=== PATIENT | male | born 1955 | race Caucasian/White ===

== ENCOUNTER 2020-05-18 10:06 | Outpatient (REF) | payer OTHER, SELFPAY | END 2020-05-18 10:07 | disposition home or self-care (01) | LOC: HO.WFDLDS 10:06 | PROVIDERS: PCP Internal Medicine; Visit Provider Internal Medicine | DX: Z20.822 Contact with and (suspected) exposure to COVID-19 (principal) | CPT/HCPCS: 36415; C9803; U0003; U0005 ==

== ENCOUNTER 2023-12-30 09:31 | Outpatient (AMB) | payer MEDICARE, SELFPAY ==
--- NOTE | 2023-12-30 10:06 | MHC.PC.OV ---
Vital Signs 12/30/23 10:17 12/30/23 10:22 Height 5 ft 5.75 in Weight 189 lb 8 oz BMI 30.8 BP 144/76 H 138/78 Blood Pressure Location Rt brachial Rt brachial Position Sitting Sitting Pulse 76 Pulse Source Pulse Oximeter Temp 98.1 F Temp Source Oral Pulse Oximetry (%) 96 Oxygen Delivery Method Room Air Intake Visit Reasons: [employer]IL[employer]-Establish Care Allergies No Known Allergies Allergy (Verified 12/30/23 10:13) Tobacco use date assessed: 12/30/23 Fall risk assessment: No Falls in past year Last assessed Fall Risk: 12/30/23 Dental Screening Dental Screen Date: 12/30/23 Did you have a dental visit in the last 12 months?: Yes Did you have a dental problem in the last 6 months where you did not have access to dental care?: No Was dental information given to patient?: Patient has dentist HPI HPI Comments History of Present Illness Details 68 year old male with past medical history of hypertension, hyperlipidemia, insomnia presenting for follow up. Transfer from [facility] CV: On simvastatin 40mg daily, ASA 81mg. Insomnia: Tried all classical medications. Continues on depakote, the only medication that works for sleep. This was originally prescribed by neurology TAL: Follows with sleep medicine at [facility] MSK: Status post right total shoulder [facility], Dr. Haas. We will have upcoming left total shoulder. Chronic low back, buttock, bilateral feet pain. Had an extensive workup for the bilateral foot pain in the past. Insert rather acutely after playing [employer] tennis his few years ago and persisted. X-rays showed arthritis. EMG was performed, Podiatry, neurosurgical and vascular consultation without diagnosis or improvement. Did receive a L5-S1 interlaminar epidural injection which provided some relief to the foot pain given a spondylosis (no significant spinal stenosis). He was having some issues with TMJ. Did well on Elavil but only needed te short term. Colonoscopy -[facility] 2020 ROS CONSTITUTIONAL: Denies weight loss, fever and chills. HEENT: Denies changes in vision and hearing. RESPIRATORY: Denies SOB and cough. CV: Denies palpitations and CP GI: Denies abdominal pain, nausea, vomiting and diarrhea. : Denies dysuria and urinary frequency. MSK: Denies new myalgia and joint pain. SKIN: Denies rash and pruritus. NEUROLOGICAL: Denies headache PSYCHIATRIC: Denies recent changes in mood. PHYSICAL EXAM: GENERAL: Alert and oriented x 3. NAD EYES: EOMI. Anicteric. HENT: Moist mucous membranes. No scleral icterus. No cervical lymphadenopathy. LUNGS: Clear to auscultation bilaterally. CARDIOVASCULAR: Regular rate and rhythm. No murmur. No JVD. ABDOMEN: Soft, non-tender +bs EXTREMITIES: No edema. Non-tender. SKIN: No rashes or lesions. Warm. NEUROLOGIC: No focal neurological deficits. CN II-XII grossly intact PSYCHIATRIC: Cooperative. Appropriate mood and affect [facility] Surgical History (Updated 12/30/23 @ 10:22 by Kaylie Bee CMA) History of total right knee replacement Hx of colonoscopy Social History (Updated 12/30/23 @ 10:16 by Kaylie Bee CMA) Housing: House Alcohol intake: current Patient Tobacco Use Status: Never used Tobacco e-Cigarette/Vaping Use: Never Used Second Hand Smoke Exposure: No service: No Current occupational status: retired Cognitive needs: No Hearing needs: No Vision needs: Yes (glasses) Questionnaire PHQ-9 Over the last 2 weeks, how often have you been bothered by any of the following problems? 1. Little interest or pleasure in doing things: not at all 2. Feeling down, depressed, or hopeless: not at all 3. Trouble falling or staying asleep, or sleeping too much: several days 4. Feeling tired or having little energy: not at all 5. Poor appetite or overeating: not at all 6. Feeling bad about yourself - or that you are a failure or have let yourself or your family down: not at all 7. Trouble concentrating on things, such as reading the newspaper or watching television: not at all 8. Moving or speaking so slowly that other people could have noticed. Or the opposite - being so fidgety or restless that you have been moving around a lot more than usual: not at all 9. Thoughts that you would be better off or of hurting yourself in some way: not at all Total score: 1 Depression Screening Interpretation: Negative Depression Screening Done: Yes 19657 - PHQ-9 Billing: Yes Source: Developed by Drs. Anoop Matt, Lizz Alcaraz, Rico Beach and colleagues, with an educational rudi from [employer]. Thrive Questionnaire Date Thrive assessed: 12/27/23 I am a: Patient What is your living situation today?: I have a steady place to live Within the past 12 months, did the food you bought not last and you didn't have the money to get more?: Never true Within the past 12 months, did you worry whether your food would run out before you got money to buy more?: Never true Do you have trouble paying for medicines?: No Do you have trouble getting transportation to medical appointments?: No Do you have trouble paying your heating and electricity bill?: No Do you have trouble taking care of your child, family member or friend?: No Do you have trouble with day-to-day activities such as bathing, preparing meals, shopping, managing finances, etc.?: No Are you currently unemployed and looking for a job?: No Are you interested in more education?: No Please select the resources that you would like help with: None Currently or been in a relationship where the following occur: No concerns reported THRIVE Score: 0 AUDIT C Alcohol Use Questionnaire (AUDIT-C) 1. How often do you have a drink containing alcohol?: 2-4 times a month 2. How many drinks containing alcohol do you have on a typical day when you are drinking?: 1 or 2 3. How often do you have six or more drinks on one occasion?: Never Total Score: 2 AKSHAT-7 AMB Questionnaire AKSHAT-7 Date AKSHAT - 7 assessed: 12/30/23 Feeling nervous, anxious, or on edge: 0 = Not at all Not being able to stop or control worryin = Not at all Worrying too much about different things: 0 = Not at all Trouble relaxin = Not at all Being so restless that it is hard to sit still: 0 = Not at all Becoming easily annoyed or irritable: 0 = Not at all Feeling afraid as if something awful might happen: 0 = Not at all Total AKSHAT-7 score (0-4 normal; 5-9 mild; 10-14 moderate; 15-21 severe): 0 Source: Developed by Drs. Anoop Matt, Lizz Alcaraz, Rico Beach and colleagues, with an educational rudi from [employer]. AKSHAT-7 Assessment Billing AKSHAT-7 Assessment Tool: AKSHAT-7 Assessment 42523 Physical exam (Primary Care) Vital Signs: Last Vital Signs Temp 98.1 F 12/30/23 10:17 Pulse 76 12/30/23 10:17 BP 138/78 12/30/23 10:22 Pulse Ox 96 12/30/23 10:17 Oxygen Delivery Method Room Air 12/30/23 10:17 BMI result Body Mass Index 30.8 PHQ-9: PHQ-9 Score PHQ-9: Total score 1 12/30/23 10:07 Depression Screening Interpretation: Negative Thrive Assessment: Date of Thrive Assessment Date Thrive assessed 12/27/23 12/30/23 10:07 Currently or been in a relationship where the following occur: No concerns reported Coding Level of Care Code Est Pt Level 4 (41779) Complex EM visit Add On G2211 Diagnoses Mixed hyperlipidemia E78.2 Hyperlipidemia type: mixed hyperlipidemia TAL (obstructive sleep apnea) G47.33 Primary insomnia F51.01 Insomnia type: primary Additional Codes AKSHAT-7 Assessment Billing - AKSHAT-7 Assessment Tool: AKSHAT-7 Assessment 49833 ([id number]) Assessment & Plan Assessment & Plan (1) Hyperlipidemia: Code(s): E78.5 - Hyperlipidemia, unspecified Category: Medical Qualifiers: Hyperlipidemia type: mixed hyperlipidemia Qualified Code(s): E78.2 - Mixed hyperlipidemia Plan: continue statin therapy LDL has been at goal (2) TAL (obstructive sleep apnea): Code(s): G47.33 - Obstructive sleep apnea (adult) (pediatric) Category: Medical Plan: stable on cpap therapy (3) Insomnia: Code(s): G47.00 - Insomnia, unspecified Category: Medical Qualifiers: Insomnia type: primary Qualified Code(s): F51.01 - Primary insomnia Plan: stable on depakote. monitor levels Orders: Orders Complete Blood Count Auto Diff Today E78.5 - Hyperlipidemia, unspecified, G47.00 - Insomnia, unspecified, G47.33 - Obstructive sleep apnea (adult) (pediatric), M54.50 - Low back pain, unspecified Comprehensive Met. Panel Today E78.5 - Hyperlipidemia, unspecified, G47.00 - Insomnia, unspecified, G47.33 - Obstructive sleep apnea (adult) (pediatric), M54.50 - Low back pain, unspecified Other Ref Test - Misc Today Z51.81 - Encounter for therapeutic drug level monitoring Lipid Panel Today E78.5 - Hyperlipidemia, unspecified, G47.00 - Insomnia, unspecified, G47.33 - Obstructive sleep apnea (adult) (pediatric), M54.50 - Low back pain, unspecified Prostate Specific Antigen Today E78.5 - Hyperlipidemia, unspecified, G47.00 - Insomnia, unspecified, G47.33 - Obstructive sleep apnea (adult) (pediatric), M54.50 - Low back pain, unspecified TSH reflex Free T4 Today E78.5 - Hyperlipidemia, unspecified, G47.00 - Insomnia, unspecified, G47.33 - Obstructive sleep apnea (adult) (pediatric), M54.50 - Low back pain, unspecified Hemoglobin A1c Today E78.5 - Hyperlipidemia, unspecified, G47.00 - Insomnia, unspecified, G47.33 - Obstructive sleep apnea (adult) (pediatric), M54.50 - Low back pain, unspecified
[2023-12-30 10:17] VITALS: BP 144/76; PULSE 76; TEMP 36.7; O2SAT 96; BMI 30.8
[2023-12-30 10:22] VITALS: BP 138/78
== END 2023-12-30 10:50 | disposition home or self-care (01) ==
LOC: HO.HMCFM 09:32
PROVIDERS: PCP Internal Medicine; Visit Provider Internal Medicine
DX: E78.2 Mixed hyperlipidemia (principal); G47.33 Obstructive sleep apnea (adult) (pediatric); F51.01 Primary insomnia

== ENCOUNTER 2023-12-30 11:06 | Outpatient (REF) | payer MEDICARE, OTHER, SELFPAY ==
[2023-12-30 14:40] LABS: MANUAL DIFF FLAG NO
[2023-12-30 14:50] LABS: Basophils Percent Auto 0.6 % (0-2); Eosinophils Absolute Auto 0.2 X10*3/uL (0.0-0.4); Eosinophils Percent Auto 3.4 % (0-4); Hematocrit 47.3 % (42.0-52.0); Hemoglobin 16.3 g/dl (14.0-18.0); Imm Gran Abs Auto 0.01 X10*3/uL (0.00-0.03); Imm Gran Pct Auto 0.2 % (0.0-0.4); Lymphocytes Absolute Auto 1.3 X10*3/uL (1.2-4.9); Mean Corpuscular HGB Conc 34.5 g/dl (31.0-36.0); Mean Corpuscular Volume 90.1 fL (80.0-98.0); Mean Platelet Volume 10.7 fL (9.4-12.4); Monocytes Absolute Auto 0.5 X10*3/uL (0.1-1.2); Monocytes Percent Auto 10.5 % (2-11); Neutrophils Absolute Auto 2.9 x10*3/uL (2.0-8.3); Neutrophils Percent Auto 58.3 % (45-73); Platelet Count 186 X10*3/uL (160-400); Red Blood Count 5.25 X10*6/uL (4.60-5.80); Red Cell Distribution Width 12.7 % (11.0-16.0); White Blood Count 4.9 X10*3/uL (4.8-10.8)
[2023-12-30 15:04] LABS: Estimated Average Glucose 117 mg/dL; Hemoglobin A1C 171.7977 umol/L; Hemoglobin A1c % 5.7 % (<6.0); Total Hemoglobin (HGBA1C) 4368.0607 umol/L
[2023-12-30 16:12] LABS: Alanine Aminotransferase 82 U/L (0-40); Albumin Level 4.1 g/dL (3.5-5.0); Alkaline Phosphatase 71 U/L (39-117); Anion Gap 14 (12-20); Aspartate Amino Transferase 76 U/L (5-37); Bilirubin Total 0.3 mg/dL (0.0-1.0); Blood Urea Nitrogen 12 mg/dL (9-16); Calcium 9.8 mg/dL (8.4-10.2); Carbon Dioxide 25 mmol/L (22-29); Chloride 103 mmol/L (96-108); Cholesterol 189 mg/dL (<200); Estimated Glomerular Filt Rate > 60; Glucose Random 109 mg/dL (60-115); HDL Cholesterol 45 mg/dL (>40); LDL Cholesterol Calculated 69 mg/dL (<100); Potassium 4.4 mmol/L (3.3-5.1); Sodium 138 mmol/L (135-145); Total Protein 7.4 g/dL (6.5-8.0); Triglycerides 376 mg/dL (<150)
[2023-12-30 16:32] LABS: TSH reflex Free T4 2.04 uIU/mL (0.32-4.0)
[2023-12-30 16:49] LABS: Valproate 25.9 mcg/mL (50.0-100.0)
== END 2023-12-30 11:07 | disposition home or self-care (01) ==
LOC: HO.WFDLDS 11:06
PROVIDERS: Visit Provider Internal Medicine
DX: Z51.81 Encounter for therapeutic drug level monitoring (principal); E78.5 Hyperlipidemia, unspecified; G47.00 Insomnia, unspecified; G47.33 Obstructive sleep apnea (adult) (pediatric); M54.50 Low back pain, unspecified; E78.2 Mixed hyperlipidemia; F51.01 Primary insomnia; Z12.5 Encounter for screening for malignant neoplasm of prostate; Z13.1 Encounter for screening for diabetes mellitus
CPT/HCPCS: 36415; 80053; 80061; 80164; 83036; 84153; 84443; 85025; 96127; 99212

== ENCOUNTER 2024-08-03 14:01 | Outpatient (AMB) | payer MEDICARE, OTHER, SELFPAY ==
--- NOTE | 2024-08-03 14:21 | A.OFFPC_ITS ---
Vital Signs 08/03/24 14:28 Height 5 ft 5.75 in Weight 197 lb 2 oz BMI 32.1 BP 144/64 H Blood Pressure Location Rt brachial Position Sitting Respiration 14 Pulse 66 Pulse Source Pulse Oximeter Pulse Oximetry (%) 97 Oxygen Delivery Method Room Air Intake Visit Reasons: Annual Physical Intake Note: Physical General Superintendent Required: No Allergies No Known Allergies Allergy (Verified 08/03/24 14:22) Tobacco use date assessed: 08/03/24 Fall risk assessment: No Falls in past year Last assessed Fall Risk: 08/03/24 Dental Screening Dental Screen Date: 08/03/24 Did you have a dental visit in the last 12 months?: Yes Did you have a dental problem in the last 6 months where you did not have access to dental care?: No Was dental information given to patient?: Patient has dentist HPI HPI Comments History of Present Illness Details 69 year old male with past medical histo ry of hypertension, hyperlipidemia, insomnia presenting for physical exam CV: On simvastatin 40mg daily, ASA 81mg. Denies chest pain. No exertional dyspnea Insomnia: Tried all classical medications. On depakote 500mg nightly for sleep. This was originally prescribed by neurology after failing multiple others TAL: Follows with sleep medicine at [facility] MSK: Status post bilateral total shoulder [facility]. Chronic low back, buttock, bilateral feet pain. Had an extensive workup for the bilateral foot pain in the past. Insert rather acutely after playing [employer] tennis his few years ago and persisted. X-rays showed arthritis. EMG was performed, Podiatry, neurosurgical and vascular consultation without diagnosis or improvement. Did receive a L5-S1 interlaminar epidural injection which provided some relief to the foot pain given a spondylosis (no significant spinal stenosis). He was having some issues with TMJ. Did well on Elavil in past but only needed short term Colonoscopy -[facility] 2019-unsure if 5 or 10, patient will call Will get immunization record from [facility] CONSTITUTIONAL: Denies weight loss, fever and chills. HEENT: Denies changes in vision and hearing. RESPIRATORY: Denies SOB and cough. CV: Denies palpitations and CP GI: Denies abdominal pain, nausea, vomiting and diarrhea. : Denies dysuria and urinary frequency. MSK: Denies new myalgia and joint pain. SKIN: Denies rash and pruritus. NEUROLOGICAL: Denies headache PSYCHIATRIC: Denies recent changes in mood. PHYSICAL EXAM: GENERAL: Alert and oriented x 3. NAD EYES: EOMI. Anicteric. HENT: Moist mucous membranes. No scleral icterus. No cervical lymphadenopathy. LUNGS: Clear to auscultation bilaterally. CARDIOVASCULAR: Regular rate and rhythm. No murmur. No JVD. : Normal penis and testes ABDOMEN: Soft, non-tender +bs EXTREMITIES: No edema. Non-tender. SKIN: No rashes or lesions. Warm. NEUROLOGIC: No focal neurological deficits. CN II-XII grossly intact PSYCHIATRIC: Cooperative. Appropriate mood and affect [facility] Surgical History History of total shoulder replacement History of total right knee replacement Hx of colonoscopy Social History Housing: House Alcohol intake: current Patient Tobacco Use Status: Never used Tobacco e-Cigarette/Vaping Use: Never Used Second Hand Smoke Exposure: No service: No Current occupational status: retired Cognitive needs: No Hearing needs: No Vision needs: Yes (glasses) Questionnaire PHQ-9 Over the last 2 weeks, how often have you been bothered by any of the following problems? 1. Little interest or pleasure in doing things: not at all 2. Feeling down, depressed, or hopeless: not at all 3. Trouble falling or staying asleep, or sleeping too much: several days 4. Feeling tired or having little energy: not at all 5. Poor appetite or overeating: not at all 6. Feeling bad about yourself - or that you are a failure or have let yourself or your family down: not at all 7. Trouble concentrating on things, such as reading the newspaper or watching television: not at all 8. Moving or speaking so slowly that other people could have noticed. Or the opposite - being so fidgety or restless that you have been moving around a lot more than usual: not at all 9. Thoughts that you would be better off or of hurting yourself in some way: not at all Total score: 1 Depression Screening Interpretation: Negative Depression Screening Done: Yes 39468 - PHQ-9 Billing: Yes Source: Developed by Lizz Mullins.W. Kieran, Rico Beach and colleagues, with an educational rudi from [employer]. Thrive Questionnaire Date Thrive assessed: 07/27/24 I am a: Patient What is your living situation today?: I have a steady place to live Within the past 12 months, did the food you bought not last and you didn't have the money to get more?: Never true Within the past 12 months, did you worry whether your food would run out before you got money to buy more?: Never true Do you have trouble paying for medicines?: No Do you have trouble getting transportation to medical appointments?: No Do you have trouble paying your heating and electricity bill?: No Do you have trouble taking care of your child, family member or friend?: No Do you have trouble with day-to-day activities such as bathing, preparing meals, shopping, managing finances, etc.?: No Are you currently unemployed and looking for a job?: No Are you interested in more education?: No Please select the resources that you would like help with: None Currently or been in a relationship where the following occur: No concerns reported THRIVE Score: 0 AUDIT C Alcohol Use Questionnaire (AUDIT-C) 1. How often do you have a drink containing alcohol?: 2-3 times a week 2. How many drinks containing alcohol do you have on a typical day when you are drinking?: 1 or 2 3. How often do you have six or more drinks on one occasion?: Never Total Score: 3 AKSHAT-7 AMB Questionnaire AKSHAT-7 Date AKSHAT - 7 assessed: 08/03/24 Feeling nervous, anxious, or on edge: 0 = Not at all Not being able to stop or control worryin = Not at all Worrying too much about different things: 0 = Not at all Trouble relaxin = Not at all Being so restless that it is hard to sit still: 0 = Not at all Becoming easily annoyed or irritable: 0 = Not at all Feeling afraid as if something awful might happen: 0 = Not at all Total AKSHAT-7 score (0-4 normal; 5-9 mild; 10-14 moderate; 15-21 severe): 0 Source: Developed by Drs. Anoop Matt, Lizz Alcaraz, Rico Beach and colleagues, with an educational rudi from [employer]. AKSHAT-7 Assessment Billing AKSHAT-7 Assessment Tool: AKSHAT-7 Assessment 15954 Physical exam (Primary Care) Vital Signs: Last Vital Signs Pulse 66 08/03/24 14:28 Resp 14 08/03/24 14:28 BP 144/64 H 08/03/24 14:28 Pulse Ox 97 08/03/24 14:28 Oxygen Delivery Method Room Air 08/03/24 14:28 BMI result Body Mass Index 32.1 Tobacco/Smoking Status: Tobacco use Status Tobacco use date assessed 08/03/24 08/03/24 14:30 Patient Tobacco Use Status Never used Tobacco 08/03/24 14:30 e-Cigarette/Vaping Use Never Used 08/03/24 14:30 PHQ-9: PHQ-9 Score PHQ-9: Total score 1 08/03/24 15:00 Depression Screening Interpretation: Negative Thrive Assessment: Date of Thrive Assessment Date Thrive assessed 07/27/24 08/03/24 14:30 Currently or been in a relationship where the following occur: No concerns reported Coding Level of Care Code New Pt Prev Care >65yr (33959) Diagnoses Physical exam Z00.00 Low back pain, unspecified back pain laterality, unspecified chronicity, unspecified whether sciatica present M54.50 Chronicity: unspecified Back pain laterality: unspecified Sciatica presence: unspecified whether sciatica present TAL (obstructive sleep apnea) G47.33 Primary insomnia F51.01 Insomnia type: primary Mixed hyperlipidemia E78.2 Hyperlipidemia type: mixed hyperlipidemia Additional Codes AKSHAT-7 Assessment Billing - AKSHAT-7 Assessment Tool: AKSHAT-7 Assessment 69545 ([id number]) PHQ-9 - 50088 - PHQ-9 Billing: Yes ([id number]) Assessment & Plan Assessment & Plan (1) Physical exam: Code(s): Z00.00 - Encounter for general adult medical examination without abnormal findings Category: Medical (2) Low back pain: Code(s): M54.50 - Low back pain, unspecified Category: Medical Qualifiers: Chronicity: unspecified Back pain laterality: unspecified Sciatica presence: unspecified whether sciatica present Qualified Code(s): M54.50 - Low back pain, unspecified (3) TAL (obstructive sleep apnea): Code(s): G47.33 - Obstructive sleep apnea (adult) (pediatric) Category: Medical (4) Insomnia: Code(s): G47.00 - Insomnia, unspecified Category: Medical Qualifiers: Insomnia type: primary Qualified Code(s): F51.01 - Primary insomnia (5) Hyperlipidemia: Code(s): E78.5 - Hyperlipidemia, unspecified Category: Medical Qualifiers: Hyperlipidemia type: mixed hyperlipidemia Qualified Code(s): E78.2 - Mixed hyperlipidemia Plan 69 year old for cpe Interval history reviewed Preventive measures for age discussed HLD-well controlled on medications Insomnia is stable. Labs ordered Orders: Orders 2 Comprehensive Met. Panel 08/03/24 E78.2 - Mixed hyperlipidemia, G47.33 - Obstructive sleep apnea (adult) (pediatric), Z12.5 - Encounter for screening for malignant neoplasm of prostate, Z13.0 - Encounter for screening for diseases of the blood and blood-forming organs and certain disorders involving the immune mechanism, Z51.81 - Encounter for therapeutic drug level monitoring Lipid Panel 08/03/24 E78.2 - Mixed hyperlipidemia, G47.33 - Obstructive sleep apnea (adult) (pediatric), Z12.5 - Encounter for screening for malignant neoplasm of prostate, Z13.0 - Encounter for screening for diseases of the blood and blood-forming organs and certain disorders involving the immune mechanism, Z51.81 - Encounter for therapeutic drug level monitoring Prostate Specific Antigen 08/03/24 E78.2 - Mixed hyperlipidemia, G47.33 - Obstructive sleep apnea (adult) (pediatric), Z12.5 - Encounter for screening for malignant neoplasm of prostate, Z13.0 - Encounter for screening for diseases of the blood and blood-forming organs and certain disorders involving the immune mechanism, Z51.81 - Encounter for therapeutic drug level monitoring Valproate 08/03/24 E78.2 - Mixed hyperlipidemia, G47.33 - Obstructive sleep apnea (adult) (pediatric), Z12.5 - Encounter for screening for malignant neoplasm of prostate, Z13.0 - Encounter for screening for diseases of the blood and blood-forming organs and certain disorders involving the immune mechanism, Z51.81 - Encounter for therapeutic drug level monitoring Complete Blood Count Auto Diff 08/03/24 E78.2 - Mixed hyperlipidemia, G47.33 - Obstructive sleep apnea (adult) (pediatric), Z12.5 - Encounter for screening for malignant neoplasm of prostate, Z13.0 - Encounter for screening for diseases of the blood and blood-forming organs and certain disorders involving the immune mechanism, Z51.81 - Encounter for therapeutic drug level monitoring
[2024-08-03 14:28] VITALS: BP 144/64; PULSE 66; RESP 14; O2SAT 97; BMI 32.1
--- OUTSIDE RECORDS SUMMARY | 2024-08-03 15:56 | XMS_ITS | Clinical Summary ---
Author Organization [facility] Address [address] [place] [address] Care Team Providers Care Electrical Assemblies Supervisor Name Role Phone Unavailable Primary Care Provider Unavailabl e Surgical History Surgery Date Site/Laterality Comments KNEE ARTHROSCOPY W/ MENISCAL REPAIR PROCEDURE: IA ARTHROSCOPY KNEE W/MENISCUS RPR MEDIAL/LATERAL; COMMENT: R '98, Left ' COLONOSCOPY 03/20/10 PROCEDURE: HISTORICAL COLONOSCOPY; COMMENT: normal; repeat in ten years TOTAL KNEE ARTHROPLASTY 04/07/12 PROCEDURE: IA ARTHRP KNE CONDYLE&PLATU MEDIAL&LAT COMPARTMENTS; COMMENT: Grya Pierre MD - [facility] (right) Medical History Medical History Date Comments Insomnia, unspecified DX:Insomni a, unspecified Pure hypercholesterolemia DX:Pur e hypercholesterolemia Sleep apnea DX:Sleep apnea Fatty liver DX:Fatty liver TAL on CPAP 03/28/2015 DX:TAL on CPAP Bilateral shoulder pain 03/16/2016 DX:Bilat eral shoulder pain Family History Medical History Relation Name Comments Stroke Brother 1 mid 40's Arthritis Brother 2 Asthma Brother 3 childhood Diabetes Father Other: emphysema Father 72 yo Prostate cancer Father Arthritis Mother 71 Relation Name Status Comments Brother 1 Brother 2 Brother 3 Brother 4 Alive CVA at 40 Brother 5 Alive Nervous breakdo wn and alcohol Brother 6 Alive 2 alcohol Brother 7 Alive healthy Daughter Alive 2 healthy Father Alive CVA - bleed, DM , Prostrate cancer, emphysema, CAGB, TKR Maternal Grandfather (Age 60s) C ancer ?Lung Maternal Grandmother (Age 60s) U K Mother Diverticulitis complications, arthritis and joint replacement Paternal Grandfather (Age 60s) C olon cnacer Paternal Grandmother (Age 60) [place] Son Alive 1 healthy Social History Tobacco Use Types Packs/Day Years Used Date Smoking Tobacco: Never Smokeless Tobacco: Never Alcohol Use Standard Drinks/Week Comments Yes 0 (1 standard drink = 0.6 oz pur e alcohol) Sex and Gender Information Value Date Recorded Sex Assigned at Not on file Legal Sex Male 6:32 AM EST Gender Identity Not on file Sexual Orientation Not on file Obstetrics History Plan of Treatment Upcoming Encounters Date Type Department Care Team ([facility] Contact Info) Description 09/16/2024 9:45 AM EDT Office Visit [facility] [address] [phone] [place] [address] [place] [address] 01/25/2025 9:30 AM EST Office Visit [facility] [address] [phone] Austen Engle MD [address] [place] [id number] Health Maintenance Due Date Last Done Comments Hepatitis A Vaccines (1 of 2 - Risk 2-dose series) 02/13/1975 Pneumococcal Vaccine: 50+ Years (1 of 1 - PCV) 02/13/2006 Zoster Vaccines (1 of 2) 02/13/2006 Hepatitis B Vaccines (1 of 3 - Risk 3-dose series) 2016 RSV Immunization Adult Patients (1 - Risk 60-74 years 1-dose series) 2016 DTaP,Tdap,and Td Vaccines (2 - Td or Tdap) 12/11/2021 12/12/2011 COVID-19 Vaccine (3 - 2023-2 5 season) 2023 06/10/2020, 05/20/2020 Abdominal Aortic Aneurysm (AAA) Screen 07/14/2024 Cholesterol Screening (Lipid Panel) 07/14/2024 Colorectal Cancer Screening: Colonoscopy 07/14/2024 Depression Screening 07/14/2024 Falls Risk Assessment 07/14/2024 Hepatitis C Screening 07/14/2024 Medicare Annual Wellness Visit 07/14/2024 Social Influencers of Health Screening 07/14/2024 Influenza Vaccine (Season Ended) 2024 04/12/2014, 04/23/2013, 12/12/2011 HIB Vaccines Aged Out No longer eligi ble based on patient's age to complete this topic HPV Vaccines Aged Out No longer eligi ble based on patient's age to complete this topic IPV Vaccines Aged Out No longer eligi ble based on patient's age to complete this topic MMR Vaccines Aged Out No longer eligi ble based on patient's age to complete this topic Meningococcal ACWY Vaccine Aged Out N o longer eligible based on patient's age to complete this topic Meningococcal B Vaccine Aged Out No l onger eligible based on patient's age to complete this topic RSV Immunization Patients Under 20 months Aged Out No longer eligible b ased on patient's age to complete this topic Varicella Vaccines Aged Out No longer eligible based on patient's age to complete this topic Insurance MEDICARE
== END 2024-08-03 15:06 | disposition home or self-care (01) ==
LOC: HO.HMCFM 14:02
PROVIDERS: PCP Internal Medicine; Visit Provider Internal Medicine
DX: Z00.00 Encounter for general adult medical examination without abnormal findings (principal); M54.50 Low back pain, unspecified; G47.33 Obstructive sleep apnea (adult) (pediatric); F51.01 Primary insomnia; E78.2 Mixed hyperlipidemia

== ENCOUNTER → 2024-08-03 14:01 | Outpatient (BNVA) | payer MEDICARE, OTHER, SELFPAY | PROVIDERS: PCP Internal Medicine; Visit Provider Internal Medicine | DX: Z00.00 Encounter for general adult medical examination without abnormal findings (principal); M54.50 Low back pain, unspecified; G47.33 Obstructive sleep apnea (adult) (pediatric); F51.01 Primary insomnia; E78.2 Mixed hyperlipidemia; I10 Essential (primary) hypertension; G47.00 Insomnia, unspecified; Z79.82 Long term (current) use of aspirin; Z79.899 Other long term (current) drug therapy | CPT/HCPCS: 96127; 99397 ==

== ENCOUNTER 2025-02-05 08:49 | Outpatient (AMB) | payer MEDICARE, OTHER, SELFPAY ==
[2025-02-05 09:00] VITALS: BP 114/82; PULSE 56; RESP 14; O2SAT 99; BMI 30.4
--- NOTE | 2025-02-05 09:00 | A.OFFPC_ITS ---
Vital Signs 02/05/25 09:00 Height 5 ft 5.75 in Weight 187 lb 4 oz BMI 30.4 BP 114/82 Blood Pressure Location Rt brachial Position Sitting Respiration 14 Pulse 56 Pulse Source Pulse Oximeter Pulse Oximetry (%) 99 Oxygen Delivery Method Room Air Intake Visit Reasons: 6m follow up Allergies No Known Allergies Allergy (Verified 02/05/25 09:00) Tobacco use date assessed: 08/03/24 Fall risk assessment: 1 Fall in past year (fell off a ramp) Last assessed Fall Risk: 02/05/25 Dental Screening Dental Screen Date: 08/03/24 HPI HPI Comments History of Present Illness Details 69 year old male with past medical histo ry of hypertension, hyperlipidemia, insomnia presenting for physical exam CV: On simvastatin 40mg daily, ASA 81mg. Denies chest pain. No exertional dyspnea Insomnia: Stable on depakote 500mg nightly for sleep. Tried all classical medications. This was originally prescribed by neurology after failing multiple others TAL: Follows with sleep medicine at [facility]. Compliant with CPAP MSK: Status post bilateral total shoulder [facility]. Chronic low back, buttock, bilateral feet pain. Had an extensive workup for the bilateral foot pain in the past. Insert rather acutely after playing [employer] tennis his few years ago and persisted. X-rays showed arthritis. EMG was performed, Podiatry, neurosurgical and vascular consultation without diagnosis or improvement. Did receive a L5-S1 interlaminar epidural injection which provided some relief to the foot pain given a spondylosis (no significant spinal stenosis). He was having some issues with TMJ. Did well on Elavil in past but only needed short term. Fell off a ladder waving hi-cracked a few ribs. Increased numbness in the right thigh, right hand. Working with a chiropractor Colonoscopy -GI 2019-due September 2024. [facility] [place] Will get immunization record from [facility] see HPI PHYSICAL EXAM: GENERAL: Alert and oriented x 3. NAD EYES: EOMI. Anicteric. HENT: Moist mucous membranes. No scleral icterus. No cervical lymphadenopathy. LUNGS: Clear to auscultation bilaterally. CARDIOVASCULAR: Regular rate and rhythm. No murmur. No JVD. : Normal penis and testes ABDOMEN: Soft, non-tender +bs EXTREMITIES: No edema. Non-tender. SKIN: No rashes or lesions. Warm. NEUROLOGIC: No focal neurological deficits. CN II-XII grossly intact PSYCHIATRIC: Cooperative. Appropriate mood and affect [facility] Surgical History History of total shoulder replacement History of total right knee replacement Hx of colonoscopy Social History Housing: House Alcohol intake: current Patient Tobacco Use Status: Never used Tobacco e-Cigarette/Vaping Use: Never Used Second Hand Smoke Exposure: No Use of substances other than those prescribed or required for medical reasons: No service: No Current occupational status: retired Cognitive needs: No Hearing needs: No Vision needs: Yes (glasses) Questionnaire Thrive Questionnaire Date Thrive assessed: 07/27/24 I am a: Patient What is your living situation today?: I have a steady place to live Within the past 12 months, did the food you bought not last and you didn't have the money to get more?: Never true Within the past 12 months, did you worry whether your food would run out before you got money to buy more?: Never true Do you have trouble paying for medicines?: No Do you have trouble getting transportation to medical appointments?: No Do you have trouble paying your heating and electricity bill?: No Do you have trouble taking care of your child, family member or friend?: No Do you have trouble with day-to-day activities such as bathing, preparing meals, shopping, managing finances, etc.?: No Are you currently unemployed and looking for a job?: No Are you interested in more education?: No Please select the resources that you would like help with: None Currently or been in a relationship where the following occur: No concerns reported THRIVE Score: 0 AUDIT C Alcohol Use Questionnaire (AUDIT-C) 1. How often do you have a drink containing alcohol?: 2-3 times a week 2. How many drinks containing alcohol do you have on a typical day when you are drinking?: 3 or 4 3. How often do you have six or more drinks on one occasion?: Never Total Score: 4 AKSHAT-7 AMB Questionnaire AKSHAT-7 Date AKSHAT - 7 assessed: 08/03/24 Source: Developed by Drs. Anoop Matt, Lizz Alcaraz, Rico Beach and colleagues, with an educational rudi from [employer]. Physical exam (Primary Care) Vital Signs: Last Vital Signs Pulse 56 02/05/25 09:00 Resp 14 02/05/25 09:00 BP 114/82 02/05/25 09:00 Pulse Ox 99 02/05/25 09:00 Oxygen Delivery Method Room Air 02/05/25 09:00 BMI result Body Mass Index 30.4 Tobacco/Smoking Status: Tobacco use Status Tobacco use date assessed 08/03/24 02/05/25 09:03 Patient Tobacco Use Status Never used Tobacco 02/05/25 09:07 e-Cigarette/Vaping Use Never Used 02/05/25 09:07 Thrive Assessment: Date of Thrive Assessment Date Thrive assessed 07/27/24 02/05/25 09:03 Currently or been in a relationship where the following occur: No concerns reported Coding Level of Care Code Est Pt Level 4 (63777) Diagnoses Mixed hyperlipidemia E78.2 Hyperlipidemia type: mixed hyperlipidemia Elevated glucose R73.09 TAL (obstructive sleep apnea) G47.33 Primary insomnia F51.01 Insomnia type: primary Assessment & Plan Assessment & Plan (1) Hyperlipidemia: Code(s): E78.5 - Hyperlipidemia, unspecified Category: Medical Qualifiers: Hyperlipidemia type: mixed hyperlipidemia Qualified Code(s): E78.2 - Mixed hyperlipidemia (2) Elevated glucose: Code(s): R73.09 - Other abnormal glucose Category: Medical (3) TAL (obstructive sleep apnea): Code(s): G47.33 - Obstructive sleep apnea (adult) (pediatric) Category: Medical (4) Insomnia: Code(s): G47.00 - Insomnia, unspecified Category: Medical Qualifiers: Insomnia type: primary Qualified Code(s): F51.01 - Primary insomnia Plan 69 year old presenting for follow up Interval history reviewed Interested in inspire, low enough BMI-referral placed Hemorrhoids-referral to general surgery Insomnia-controlled on medication HLD-stable from recent labs Orders: Orders Hemoglobin A1c Today E78.2 - Mixed hyperlipidemia, R73.09 - Other abnormal glucose, Z13.0 - Encounter for screening for diseases of the blood and blood- forming organs and certain disorders involving the immune mechanism Referrals Plastic Surgery Referral G47.33 - Obstructive sleep apnea (adult) (pediatric) General Surgery Referral K64.9 - Unspecified hemorrhoids
== END 2025-02-05 10:43 | disposition home or self-care (01) ==
LOC: HO.HMCFM 08:50
PROVIDERS: PCP Internal Medicine; Visit Provider Internal Medicine
DX: E78.2 Mixed hyperlipidemia (principal); R73.09 Other abnormal glucose; G47.33 Obstructive sleep apnea (adult) (pediatric); F51.01 Primary insomnia

== ENCOUNTER → 2025-02-05 08:49 | Outpatient (BNVA) | payer MEDICARE, OTHER, SELFPAY | PROVIDERS: PCP Internal Medicine; Visit Provider Internal Medicine | DX: E78.2 Mixed hyperlipidemia (principal); R73.09 Other abnormal glucose; G47.33 Obstructive sleep apnea (adult) (pediatric); F51.01 Primary insomnia; Z99.89 Dependence on other enabling machines and devices; M54.50 Low back pain, unspecified; M79.671 Pain in right foot; M79.672 Pain in left foot; R20.0 Anesthesia of skin; G89.29 Other chronic pain | CPT/HCPCS: 99212 ==